=== PATIENT | female | born 1985 | race Caucasian/White ===

== ENCOUNTER 2017-05-06 17:06 | Emergency (ER) | payer SELFPAY ==
[2017-05-06] MEDS ORDERED: PANTOPRAZOLE SODIUM 40 MG VIAL IV PRN (17:48)
[2017-05-06] MEDS ORDERED: PANTOPRAZOLE SODIUM 40 MG VIAL IV ONE (17:48)
--- NOTE | 2017-05-06 17:49 | ER Document Report ---
ED Medical Screen (RME) - General Mode of Arrival: Ambulatory Information source: Patient TRAVEL OUTSIDE OF THE [place] IN LAST 30 DAYS: No <RAHEL JENKINS - Last Filed: 05/06/17 18:30> <DENISE KAISER - Last Filed: 05/06/17 19:04> - General Chief Complaint: Vomiting Stated Complaint: VOMITING Time Seen by Provider: 05/06/17 17:42 Notes: Patient is a 31 year old female with a history of stomach ulcers presents to the emergency department complaining of bloody and black stool onset 2 days ago. Patient states that she has also had some abdominal pain and that she generally feels weak. Patient states that she has taken Pepto Bismol to try and alleviate her symptoms. I have greeted and performed a rapid initial assessment of this patient. A comprehensive ED assessment and evaluation of the patient, analysis of test results and completion of the medical decision making process will be conducted by additional ED providers. (RAHEL JENKINS) - Related Data Allergies/Adverse Reactions: latex [Latex] Allergy (Mild, Verified 05/06/17 17:06) burning Penicillins Allergy (Verified 05/06/17 17:06) Past Medical History - Social History Chew tobacco use (# tins/day): No Frequency of alcohol use: None Drug Abuse: None - Past Medical History Cardiac Medical History: Denies: Hx Coronary Artery Disease, Hx DVT, Hx Hypercholesterolemia, Hx Hypertension Pulmonary Medical History: Reports: Hx Asthma Denies: Hx Bronchitis, Hx COPD, Hx Pneumonia, Hx Intubation, Hx Respiratory Failure, Hx Sleep Apnea, Hx Tuberculosis Neurological Medical History: Denies: Hx Migraine Endocrine Medical History: Denies: Hx Diabetes Mellitus Type 2 Renal/ Medical History: Denies: Hx Peritoneal Dialysis, Hx Pelvic Inflammatory Disease GI Medical History: Denies: Hx Crohn's Disease, Hx Gastritis, Hx Irritable Bowel , Hx Ulcerative Colitis Musculoskeltal Medical History: Denies Hx Muscle Spasm, Denies Hx Muscle Weakness Skin Medical History: Denies Hx Cellulitis, Denies Hx MRSA Psychiatric Medical History: Denies: Hx Anxiety, Hx Depression Traumatic Medical History: Reports: Hx Fractures - Arm Infectious Medical History: Denies: Hx C-Diff, Hx MRSA - Immunizations Hx Diphtheria, Pertussis, Tetanus Vaccination: No - 2007 <RAHEL JENKINS - Last Filed: 05/06/17 18:30> Physical Exam <RAHEL JENKINS - Last Filed: 05/06/17 18:30> - General General appearance: Anxious - Skin Skin Color: Pale <DENISE KAISER - Last Filed: 05/06/17 19:04> - Vital signs Vitals: Temp Pulse Resp BP Pulse Ox 97.7 F 117 H 18 143/94 H 96 05/06/17 17:10 05/06/17 17:10 05/06/17 17:10 05/06/17 17:10 05/06/17 17:10 - Notes Notes: GENERAL: Alert, interacts well. No acute distress. . (RAHEL JENKINS) Course - Laboratory Result Diagrams: 05/06/17 18:05 05/06/17 18:05 <RAHEL JENKINS - Last Filed: 05/06/17 18:30> - Laboratory Result Diagrams: 05/06/17 18:05 05/06/17 18:05 <DENISE KAISER - Last Filed: 05/06/17 19:04> - Vital Signs Vital signs: Temp Pulse Resp BP Pulse Ox 97.7 F 117 H 18 143/94 H 96 05/06/17 17:10 05/06/17 17:10 05/06/17 17:10 05/06/17 17:10 05/06/17 17:10 Scribe Documentation - Scribe Written by Scribe:: Eamon Bland, 05/06/2017 17:56 acting as scribe for :: Mai <RAHEL JENKINS - Last Filed: 05/06/17 18:30>
[2017-05-06 18:32] LABS: ABSOLUTE EOSINOPHILS # (AUTO) 0.1 10^3/uL (0.0-0.6); ABSOLUTE LYMPHOCYTES (AUTO) 1.2 10^3/uL (0.5-4.7); ABSOLUTE MONOCYTES (AUTO) 0.6 10^3/uL (0.1-1.4); ABSOLUTE NEUT (AUTO) 3.4 10^3/uL (1.7-8.2); BASOPHILS % (AUTO) 0.1 % (0-2); HEMATOCRIT 45.4 % (36.0-47.0); HEMOGLOBIN 15.4 g/dL (12.0-15.5); HGB HCT DIFFERENCE 0.8; LYMPHOCYTES % (AUTO) 23.2 % (13-45); MEAN CORPUSCULAR HEMOGLOBIN 29.2 pg (27.0-33.4); MEAN CORPUSCULAR VOLUME 86 fl (80-97); RED BLOOD COUNT 5.28 10^6/uL (3.72-5.28); RED CELL DISTRIBUTION WIDTH 12.8 % (11.5-14.0); SEGMENTED NEUTROPHILS % (AUTO) 63.7 % (42-78); WHITE BLOOD COUNT 5.4 10^3/uL (4.0-10.5)
[2017-05-06 18:51] LABS: ALANINE AMINOTRANSFERASE 26 U/L (9-52); ALBUMIN 4.1 g/dL (3.5-5.0); ALKALINE PHOSPHATASE 65 U/L (38-126); ANION GAP 15 (5-19); ASPARTATE AMINO TRANSFERASE 16 U/L (14-36); BILIRUBIN,DIRECT 0.2 mg/dL (0.0-0.4); BILIRUBIN,TOTAL 0.3 mg/dL (0.2-1.3); BLOOD UREA NITROGEN 15 mg/dL (7-20); CARBON DIOXIDE 22 mmol/L (22-30); CHLORIDE 102 mmol/L (98-107); CREATININE RESULT 0.71 mg/dL (0.52-1.25); GLUCOSE 84 mg/dL (75-110); POTASSIUM 3.9 mmol/L (3.6-5.0); SODIUM 138.7 mmol/L (137-145)
[2017-05-06 19:27] LABS: PROTHROMBIN TIME 13.3 SEC (11.4-15.4)
[2017-05-06] MEDS ORDERED: MORPHINE SULFATE 10 MG/ML INJ IV ONE (19:35)
[2017-05-06] MEDS ORDERED: NORMAL SALINE 1000 ML 1,000 ML IV ONE (19:35)
[2017-05-06] MEDS ORDERED: ONDANSETRON HCL INJ/PF 4 MG/2 ML SDV IV ONE (19:35)
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
[2017-05-06] MEDS ORDERED: FAMOTIDINE 20 MG TABLET PO ONE (20:33)
[2017-05-06] MEDS ORDERED: SUCRALFATE 1 GM TABLET PO ONE (20:33)
[2017-05-06] MEDS ORDERED: MAG HYDROX/AL HYDROX/SIMETH SUSP 30 ML UDCUP PO ONE (20:33)
[2017-05-06 22:05] VITALS: BP 138/77
== END 2017-05-06 22:43 | disposition home or self-care (01) ==
LOC: ER 17:06
DX: K29.00 Acute gastritis without bleeding (principal); R10.12 Left upper quadrant pain; R11.2 Nausea with vomiting, unspecified; K27.9 Peptic ulcer, site unspecified, unspecified as acute or chronic, without hemorrhage or perforation; R10.10 Upper abdominal pain, unspecified; F17.200 Nicotine dependence, unspecified, uncomplicated
CPT/HCPCS: 99283; 96375; 96365; 96366; 86900; 86901; 36415; 86850; 84703; 85025; 85610; 82272; 80053; J2270; S0164; J2405; J7030

== ENCOUNTER 2017-11-13 12:48 | Emergency (ER) | payer SELFPAY ==
[2017-11-13] MEDS ORDERED: LIDOCAINE 1% INJ-PF (10 MG/ML) 30 ML SDV ONE (12:56)
[2017-11-13 13:01] VITALS: BP 118/84
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
--- NOTE | 2017-11-13 13:47 | RADIOLOGY REPORT (SQ) ---
EXAM DESCRIPTION: FINGER LEFT COMPLETED DATE/TIME: 11/13/2017 1:38 pm REASON FOR STUDY: index finger injury pain and injury last night COMPARISON: None. NUMBER OF VIEWS: Three views. TECHNIQUE: AP, lateral, and oblique images acquired of the left third finger. LIMITATIONS: None. FINDINGS: MINERALIZATION: Normal. BONES: Acute spiral fracture, middle phalanx left 4th finger. Fracture extends from the base of the 4th finger middle phalanx into the mid diaphysis. There is a butterfly fragment with palmar displace ment. SOFT TISSUES: Diffuse 4th finger soft tissue swelling. No foreign body. OTHER: No other significant finding. IMPRESSION: Acute spiral fracture middle phalanx left 4th finger. Fracture lines extend into the PI P joint. There is a displaced butterfly fragment along the palmar aspect of the fracture COMMENT: SITE OF TRAUMA/COMPLAINT MARKED/STAMP COMPLETED: Yes TECHNICAL DOCUMENTATION: JOB ID: [id number] [employer]- All Rights Reserved Reading location - IP/workstation name: [email or web address]
[2017-11-13] MEDS ORDERED: HYDROCODONE/ACETAMINOPHEN 5-325 MG TABLET PO ONE (13:48)
--- NOTE | 2017-11-13 15:23 | RADIOLOGY REPORT (SQ) ---
EXAM DESCRIPTION: ELBOW LEFT AP/LATERAL COMPLETED DATE/TIME: 11/13/2017 2:29 pm REASON FOR STUDY: fall pain COMPARISON: None. NUMBER OF VIEWS: Four views. TECHNIQUE: AP, lateral, and both oblique radiographic images acquired of the left elbow. LIMITATIONS: None. FINDINGS: MINERALIZATION: Normal. BONES: No acute fracture or dislocation. No worrisome bone lesions. JOINT: No effusion. SOFT TISSUES: No soft tissue swelling. No foreign body. OTHER: No other significant finding. IMPRESSION: NEGATIVE STUDY OF THE LEFT ELBOW. NO RADIOGRAPHIC EVIDENCE OF ACUTE INJURY. TECHNICAL DOCUMENTATION: JOB ID: [id number] [employer]- All Rights Reserved Reading location - IP/workstation name: [email or web address]
== END 2017-11-13 15:21 | disposition home or self-care (01) ==
LOC: ER 12:48
PROC: 2W3KX1Z Immobilization of Left Finger using Splint (ICD-10-PCS; principal; 2017-11-13)
DX: S62.651A Nondisplaced fracture of middle phalanx of left index finger, initial encounter for closed fracture (principal); S60.021A Contusion of right index finger without damage to nail, initial encounter; M79.89 Other specified soft tissue disorders; X58.XXXA Exposure to other specified factors, initial encounter; F17.210 Nicotine dependence, cigarettes, uncomplicated; J45.909 Unspecified asthma, uncomplicated
CPT/HCPCS: 99283; 73070; 73140; 29130; J3490

== ENCOUNTER 2018-09-24 17:21 | Emergency (ER) | payer BC ==
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
[2018-09-24 18:27] LABS: APPEARANCE,URINE SLIGHTLY-CLOUDY; BILIRUBIN,URINE NEGATIVE (NEGATIVE); COLOR,URINE ORANGE; GLUCOSE, URINE NEGATIVE (NEGATIVE); KETONES,URINE NEGATIVE (NEGATIVE); LEUKOCYTE ESTERASE,URINE MODERATE (NEGATIVE); NITRITE,URINE POSITIVE (NEGATIVE); PROTEIN,URINE NEGATIVE (NEGATIVE); URINE SPECIFIC GRAVITY 1.019
--- NOTE | 2018-09-24 19:11 | RADIOLOGY REPORT (SQ) ---
EXAM DESCRIPTION: U/S NON OB PEL TV W/DOPPLER COMPLETED DATE/TIME: 09/24/2018 6:51 pm REASON FOR STUDY: LLQ pelvic pain COMPARISON: None. TECHNIQUE: Dynamic and static grayscale images acquired of the pelvis via transvaginal approach and recorded on PACS. Additional selected color Doppler and spectral images recorded. LIMITATIONS: None. FINDINGS: UTERUS: Contour normal. No mass. ENDOMETRIAL STRIPE: No focal or generalized thickening. No masses. CERVIX: No nabothian cysts. RIGHT OVARY AND DOPPLER: Normal size. No worrisome masses. Normal arterial vascular flow without evid ence for torsion. LEFT OVARY AND DOPPLER: 2.1 cm simple appearing cyst. No suspicious lesions. Normal arterial vascul ar flow without evidence of torsion. FREE FLUID: None noted. OTHER: No other significant finding. MEASUREMENTS: UTERUS: 9 x 4 x 5 cm ENDOMETRIAL STRIPE: 1 cm RIGHT OVARY: 3 x 3 x 3 cm LEFT OVARY: 5 x 3 x 4 cm IMPRESSION: Allowing for a simple left ovarian cyst, normal transvaginal pelvic ultrasound. No worr isome or acute changes. TECHNICAL DOCUMENTATION: JOB ID: [id number]- All Rights Reserved Rev-09/30 Reading location - IP/workstation name: [email or web address]
[2018-09-24 19:52] LABS: CHLAM PCR NOT DETECTED (NOT DETECT); GON PCR NOT DETECTED (NOT DETECT)
[2018-09-24 19:59] LABS: BACTERIA (WET MOUNT) 4+ BACTERIA SEEN; EPITHELIALS (WET MOUNT) 4+ EPITHELIALS SEEN; RBCS (WET MOUNT) NO RBCS SEEN; T.VAGINALIS (WET MOUNT) NO TRICHOMONAS SEEN; WBCS (WET MOUNT) NO WBCS SEEN; YEAST (WET MOUNT) NO YEAST SEEN
[2018-09-24 20:15] LABS: ABSOLUTE EOSINOPHILS # (AUTO) 0.3 10^3/uL (0.0-0.6); ABSOLUTE MONOCYTES (AUTO) 0.7 10^3/uL (0.1-1.4); ABSOLUTE NEUT (AUTO) 6.5 10^3/uL (1.7-8.2); BASOPHILS % (AUTO) 0.2 % (0-2); EOSINOPHILS % (AUTO) 3.1 % (0-6); HEMATOCRIT 43.6 % (36.0-47.0); HEMOGLOBIN 14.8 g/dL (12.0-15.5); LYMPHOCYTES % (AUTO) 28.7 % (13-45); MEAN CORPUSCULAR HEMOGLOBIN 29.9 pg (27.0-33.4); MEAN CORPUSCULAR VOLUME 88 fl (80-97); MONOCYTES % (AUTO) 6.7 % (3-13); PLATELET COUNT 259 10^3/uL (150-450); RED BLOOD COUNT 4.96 10^6/uL (3.72-5.28); RED CELL DISTRIBUTION WIDTH 12.9 % (11.5-14.0); SEGMENTED NEUTROPHILS % (AUTO) 61.3 % (42-78); TOTAL CELLS COUNTED % (AUTO) 100 %; WHITE BLOOD COUNT 10.6 10^3/uL (4.0-10.5)
[2018-09-24 21:19] VITALS: BP 115/68
--- NOTE | 2018-09-24 21:27 | ER Document Report ---
Addendum entered and electronically signed by SOUMYA SUAREZ PA-C 09/24/18 21:42: Discharge - Discharge Clinical Impression: Lymphadenopathy UTI (urinary tract infection) Qualifiers: Urinary tract infection type: site unspecified Hematuria presence: with hematuria Qualified Code(s): N39.0 - Urinary tract infection, site not specified Condition: Stable Disposition: HOME, SELF-CARE Instructions: Cephalexin ([facility]), Lymphadenopathy ([facility]), Urinary Tract Infection ([facility]) Additional Instructions: At this I can cannot tell you what is causing your lymph nodes to swell what you need to get this further checked out by your primary care doctor. I am giving a copy of your labs today and your thyroid is fine. You do not have PID therefore we do not have to treat you for it. We will put you on an antibiotic for urinary tract infection and will help with the lymphadenopathy. Also put you on Diflucan so you do not get a yeast infection. I usually do a little different I give 1 pill day 1 of the antibiotics and 1 pill day 5-7 of the antibiotics that should cover you for getting a yeast infection. I am also going to put you on a steroid taper for 6 days just to see if we can reduce the lymphadenopathy in your areas. But is highly recommended that you follow-up soon with somebody for reevaluation. Prescriptions: Cephalexin Monohydrate [Keflex 500 mg Capsule] 500 mg PO BID #20 capsule Fluconazole [Diflucan] 150 mg PO ASDIR #2 tablet Prednisone 10 mg PO ASDIR PRN 6 Days #1 tab.ds.pk PRN Reason: Forms: Smoking Cessation Education, Return to Work [facility]errals: [facility] [NO LOCAL MD] - Follow up as needed Original Note: ED GI/ - General Chief Complaint: Pain With Urination Stated Complaint: POSSIBLE UTI Time Seen by Provider: 09/24/18 17:47 Mode of Arrival: Ambulatory Information source: Patient TRAVEL OUTSIDE OF THE [place] IN LAST 30 DAYS: No - Related Data Allergies/Adverse Reactions: latex [Latex] Allergy (Mild, Verified 09/24/18 17:21) burning Penicillins Allergy (Verified 09/24/18 17:21) Past Medical History - General Information source: Patient - Social History Smoking Status: Never Smoker Chew tobacco use (# tins/day): No Frequency of alcohol use: None Drug Abuse: None Family History: None Patient has suicidal ideation: No Patient has homicidal ideation: No - Past Medical History Cardiac Medical History: Denies: Hx Coronary Artery Disease, Hx DVT, Hx Hypercholesterolemia, Hx Hypertension Pulmonary Medical History: Reports: Hx Asthma Denies: Hx Bronchitis, Hx COPD, Hx Pneumonia, Hx Intubation, Hx Respiratory Failure, Hx Sleep Apnea, Hx Tuberculosis Neurological Medical History: Denies: Hx Migraine Endocrine Medical History: Denies: Hx Diabetes Mellitus Type 2 Renal/ Medical History: Denies: Hx Peritoneal Dialysis, Hx Pelvic Inflammatory Disease GI Medical History: Denies: Hx Crohn's Disease, Hx Gastritis, Hx Irritable Bowel, Hx Ulcerative Colitis Musculoskeletal Medical History: Denies Hx Muscle Spasm, Denies Hx Muscle Weakness Skin Medical History: Denies Hx Cellulitis, Denies Hx MRSA Psychiatric Medical History: Denies: Hx Anxiety, Hx Depression Traumatic Medical History: Reports: Hx Fractures - Arm Infectious Medical History: Denies: Hx C-Diff, Hx MRSA - Immunizations Hx Diphtheria, Pertussis, Tetanus Vaccination: No - 2007 Physical Exam - Vital signs Vitals: Temp Pulse Resp BP Pulse Ox 97.8 F 125 H 18 137/86 H 97 09/24/18 17:25 09/24/18 17:25 09/24/18 17:25 09/24/18 17:25 09/24/18 17:25 Course - Vital Signs Vital signs: Temp Pulse Resp BP Pulse Ox 98.1 F 92 16 115/68 100 09/24/18 21:18 09/24/18 21:18 09/24/18 21:18 09/24/18 21:18 09/24/18 21:18 - Laboratory Result Diagrams: 09/24/18 20:00 Laboratory results interpreted by me: 09/24/18 09/24/18 17:45 20:00 WBC 10.6 H Urine Blood LARGE H Urine Nitrite POSITIVE H Urine Urobilinogen 2.0 H Ur Leukocyte Esterase MODERATE H Discharge - Discharge Clinical Impression: Lymphadenopathy UTI (urinary tract infection) Qualifiers: Urinary tract infection type: site unspecified Hematuria presence: with hematuria Qualified Code(s): N39.0 - Urinary tract infection, site not specified; R31.9 - Hematuria, unspecified Condition: Stable Disposition: HOME, SELF-CARE Instructions: Cephalexin ([facility]), Urinary Tract Infection ([facility]), Lymphadenopathy ([facility]) Additional Instructions: At this time on Freda you can tell you what is causing your lymph nodes to swell what you need to get this further checked out by your primary care doctor. I am giving a copy of your labs today and your thyroid is fine. You do not have PID therefore we do not have to treat you for it. We will put you on an an tibiotic for urinary tract infection and will help with the lymphadenopathy. Also put you on Diflucan C do not get a yeast infection. I usually do a little different I had 1 pill day 1 of the antibiotics and 1 pill day 5-7 of the antibiotics that should cover you for getting a yeast infection. I am also going to put you on a steroid taper for 6 days just to see if we can reduce the lymphadenopathy in your areas. But is highly recommended that you follow-up soon with somebody for reevaluation. Prescriptions: Cephalexin Monohydrate [Keflex 500 mg Capsule] 500 mg PO BID #20 capsule Fluconazole [Diflucan] 150 mg PO ASDIR #2 tablet Prednisone 10 mg PO ASDIR PRN 6 Days #1 tab.ds.pk PRN Reason: Forms: Smoking Cessation Education, Return to Work Referrals: [facility] [NO LOCAL MD] - Follow up as needed
== END 2018-09-24 21:45 | disposition home or self-care (01) ==
LOC: ER 17:21
DX: N39.0 Urinary tract infection, site not specified (principal); R31.9 Hematuria, unspecified; R59.1 Generalized enlarged lymph nodes; J45.909 Unspecified asthma, uncomplicated; Z91.040 Latex allergy status; Z88.0 Allergy status to penicillin
CPT/HCPCS: 36415; 76830; 81001; 81025; 84443; 85025; 87086; 87088; 87210; 87491; 87591; 93976; 99284